=== PATIENT | male | born 1985 ===

== ENCOUNTER 2017-01-22 09:36 | Emergency (ER) | payer BC ==
[2017-01-22 09:45] VITALS: RESP 18
[2017-01-22] MEDS ORDERED: Albuterol-Ipratrop 3 mg / 0.5 (3 ml) UD ONE ×3 (09:48→10:10)
--- NOTE | 2017-01-22 10:08 | C.PDOC ---
History Of Present Illness WHEEZE, CHEST TIGHT SINCE YEST. PS HO CHILDHOOD ASHTMA BUT NOW FIRST TIME HAS HAD IT SINCE THEN. NO CP, COUGH, FEVER, LEGGETT. DENIES HO ALLERGIES, SMOKING EXAM S/P NEB NARD LUNGS OCC EXP WHEEZE NO RETRACTIONS SPEAKING FULL SENTNCES Time Seen by Provider: 01/22/17 10:08 Chief Complaint (Nursing): Shortness Of Breath History Per: Patient History/Exam Limitations: no limitations Onset/Duration Of Symptoms: Days (1) Current Symptoms Are (Timing): Still Present Associated Symptoms: denies: Dyspnea, Cough, Fever, Chest Pain Recent travel outside of the [place]: No Past Medical History Reviewed: Historical Data, Nursing Documentation, Vital Signs Vital Signs: Last Vital Signs Temp 98.3 F 01/22/17 09:44 Pulse 82 01/22/17 09:44 Resp 18 01/22/17 10:05 BP 137/85 01/22/17 09:44 Pulse Ox 96 01/22/17 10:42 - Medical History PMH: No Chronic Diseases Family History: States: Unknown Family Hx Review Of Systems Except As Marked, All Systems Reviewed And Found Negative. Constitutional: Negative for: Fever, Chills Cardiovascular: Negative for: Chest Pain, Edema Respiratory: Positive for: Wheezing. Negative for: Cough, SOB with Excertion Gastrointestinal: Negative for: Nausea, Vomiting Skin: Negative for: Rash Neurological: Negative for: Headache, Dizziness Physical Exam - Physical Exam Appears: Non-toxic, No Acute Distress, Other (S/P NEB NARD) Skin: Warm, Dry Head: Atraumatic, Normacephalic Oral Mucosa: Moist Neck: Supple Chest: Symmetrical Cardiovascular: Rhythm Regular Respiratory: No Accessory Muscle Use, No Rales, No Rhonchi, Other (LUNGS OCCASIONAL EXPIRATORY WHEEZE, NO RETRACTIONS SPEAKING FULL SENTNCES) Gastrointestinal/Abdominal: Soft, No Tenderness Back: Normal Inspection Extremity: Normal ROM, No Calf Tenderness, Capillary Refill (< 2 SEC.) Neurological/Psych: Oriented x3, Normal Speech, Normal Cognition ED Course And Treatment O2 Sat by Pulse Oximetry: 96 (RA) Pulse Ox Interpretation: Normal - Radiology CXR: Viewed By Me, Read By Radiologist CXR Interpretation: Yes: Other (IMPRESSION: Patchy opacity in the medial right lung base may reflect infiltrate.) Disposition Counseled Patient/Family Regarding: Studies Performed, Diagnosis, Need For Followup, Rx Given - Disposition Referrals: [facility] [Outside] [facility] [Outside] Disposition: HOME/ ROUTINE Disposition Time: 10:41 Condition: IMPROVED Prescriptions: Albuterol HFA [Ventolin HFA 90 mcg/actuation (8 g)] 1 puff IH Q4 #1 inhaler Azithromycin [Zithromax] 250 mg PO DAILY #6 tab Instructions: Community Acquired Pneumonia (ED) Forms: Work Excuse - Clinical Impression Clinical Impression: Bronchospasm, Pneumonia - Scribe Statement The provider has reviewed the documentation as recorded by the Scribe YRN TIDWELL All medical record entries made by the Miguelibe were at my direction and personally dictated by me. I have reviewed the chart and agree that the record accurately reflects my personal performance of the history, physical exam, medical decision making, and the department course for this patient. I have also personally directed, reviewed, and agree with the discharge instructions and disposition.
[2017-01-22] MEDS: Albuterol-Ipratrop 3 mg / 0.5 (3 ml) UD IH SCH ×3 (10:20→10:40)
--- NOTE | 2017-01-22 10:41 | RAD ---
HISTORY: asthma COMPARISON: None available. TECHNIQUE: Chest PA and lateral FINDINGS: Examination limited by habitus. LUNGS: Patchy opacity in the medial right lung base may reflect infiltrate. Please note that chest x-ray has limited sensitivity for the detection of pulmonary masses. PLEURA: No significant pleural effusion identified. No definite pneumothorax . CARDIOVASCULAR: Heart size appears within normal limits. OSSEOUS STRUCTURES: No acute osseous abnormality identified. VISUALIZED UPPER ABDOMEN: Unremarkable. OTHER FINDINGS: None. IMPRESSION: Patchy opacity in the medial right lung base may reflect infiltrate.
[2017-01-22 11:00] VITALS: BP 148/80; PULSE 93; TEMP 97.8; O2SAT 97
== END 2017-01-22 11:00 | disposition home or self-care (01) ==
LOC: C.ER 09:36
DX: J18.9 Pneumonia, unspecified organism (principal); J98.01 Acute bronchospasm

== ENCOUNTER 2017-01-28 10:15 | Inpatient (IN) | payer BC ==
[2017-01-28 10:21] VITALS: BMI 34.8
[2017-01-28] MEDS ORDERED: Albuterol-Ipratrop 3 mg / 0.5 (3 ml) UD ONE ×2 (10:24→10:48)
[2017-01-28] MEDS ORDERED: Albuterol-Ipratrop 3 mg / 0.5 (3 ml) UD INH STA ×2 (10:41→10:42)
[2017-01-28] MEDS ORDERED: Magnesium Sulfate 1 gm in D5W 1 GM/100 ML BAG IVPB ONE ×2 (10:49→11:53)
--- NOTE | 2017-01-28 10:51 | RAD ---
HISTORY: Pneumonia COMPARISON: Chest x-ray performed 01/22/17 TECHNIQUE: Chest PA and lateral FINDINGS: Examination limited by habitus. LUNGS: Minimal patchy opacity within the medial right lower lobe may reflect atelectasis versus residual infiltrate. Please note that chest x-ray has limited sensitivity for the detection of pulmonary masses. PLEURA: No significant pleural effusion identified. No definite pneumothorax . CARDIOVASCULAR: The cardiomediastinal silhouette appears within normal limits of size. OSSEOUS STRUCTURES: Degenerative changes. VISUALIZED UPPER ABDOMEN: Unremarkable. OTHER FINDINGS: None. IMPRESSION: Minimal patchy opacity within the medial right lower lobe may reflect atelectasis versus residual infiltrate.
[2017-01-28] MEDS: Magnesium Sulfate 1 gm in D5W 1 GM/100 ML BAG IVPB SCH ×2 (11:00→12:04)
--- NOTE | 2017-01-28 11:11 | C.PDOC ---
History Of Present Illness 31 y/o male presents to the ED with complains of persistent cough x1 week. Pt was seen here last week given Zpak which patient completed but symptoms persist. Cough is productive with white phlegm. Denies recent travel. Denies fever, SOB, chest pain or any other complaints. Hx of childhood asthma. Chief Complaint (Nursing): Shortness Of Breath History Per: Patient History/Exam Limitations: no limitations Onset/Duration Of Symptoms: Days, Persistent Current Symptoms Are (Timing): Still Present Severity: Mild Associated Symptoms: Productive Cough. denies: Fever, Chills, Chest Pain Reports Recently: Seen In ED Recent travel outside of the [place]: No Past Medical History Reviewed: Historical Data, Nursing Documentation, Vital Signs Vital Signs: Last Vital Signs Temp 97.3 F L 01/30/17 23:44 Pulse 78 01/31/17 06:05 Resp 20 01/30/17 23:44 BP 123/66 01/30/17 23:44 Pulse Ox 96 01/30/17 23:44 - Medical History PMH: Asthma Family History: States: Unknown Family Hx - Social History Hx Alcohol Use: No Hx Substance Use: No - Immunization History Hx Tetanus Toxoid Vaccination: No Hx Influenza Vaccination: No Hx Pneumococcal Vaccination: No Review Of Systems Except As Marked, All Systems Reviewed And Found Negative. Constitutional: Negative for: Fever, Chills Cardiovascular: Negative for: Chest Pain Respiratory: Positive for: Cough. Negative for: Shortness of Breath Gastrointestinal: Negative for: Vomiting Physical Exam - Physical Exam Appears: Non-toxic, No Acute Distress Skin: Warm, Dry, No Rash Head: Atraumatic, Normacephalic Ear(s): Bilateral: Normal Nose: Normal Oral Mucosa: Moist Throat: Normal Neck: Normal, Normal ROM, Supple Chest: Symmetrical Cardiovascular: Rhythm Regular, No Murmur Respiratory: No Rales, No Rhonchi, Wheezing (bilateral expiratory wheeze with fair entry) Gastrointestinal/Abdominal: Normal Exam, Soft, No Tenderness Extremity: Bilateral: Atraumatic Neurological/Psych: Oriented x3, Normal Speech ED Course And Treatment - Laboratory Results Result Diagrams: 01/30/17 08:06 01/30/17 08:06 O2 Sat by Pulse Oximetry: 89 (room air) Pulse Ox Interpretation: Abnormal - Other Rad CXR X-Ray: Viewed By Me, Read By Radiologist Interpretation: HISTORY: Pneumonia. COMPARISON: Chest x-ray performed . TECHNIQUE: Chest PA and lateral. FINDINGS: Examination limited by habitus. LUNGS: Minimal patchy opacity within the medial right lower lobe may reflect atelectasis versus residual infiltrate. Please note that chest x-ray has limited sensitivity for the detection of pulmonary masses. PLEURA: No significant pleural effusion identified. No definite pneumothorax . CARDIOVASCULAR: The cardiomediastinal silhouette appears within normal limits of size. OSSEOUS STRUCTURES: Degenerative changes. VISUALIZED UPPER ABDOMEN: Unremarkable. OTHER FINDINGS: None. IMPRESSION: Minimal patchy opacity within the medial right lower lobe may reflect atelectasis versus residual infiltrate. Progress Note: After treatemnts, patient continues to c/o SOB. Discussed case with Stephanie, will admit pt to his service and start abx therapy. Medical Decision Making Medical Decision Making: Plan: * labs * CXR * albuterol, nebulizer Disposition - Disposition Disposition: HOSPITALIZED Disposition Time: 13:00 Condition: STABLE - Clinical Impression Clinical Impression: Respiratory tract infection, Asthma - Scribe Statement The provider has reviewed the documentation as recorded by the Soha Shepherd Provider Attestation: All medical record entries made by the Soha were at my direction and personally dictated by me. I have reviewed the chart and agree that the record accurately reflects my personal performance of the history, physical exam, medical decision making, and the department course for this patient. I have also personally directed, reviewed, and agree with the discharge instructions and disposition.
[2017-01-28 11:12] LABS: BASO # 0.1 K/uL (0.0-0.2); BASO % 0.8 % (0.0-2.0); EOS % 6.3 % (0.0-4.0); HEMATOCRIT 49.4 % (35.0-51.0); LYMPH # 3.6 K/uL (1.0-4.3); LYMPH % 23.1 % (20.0-40.0); MEAN CELL VOLUME 86.2 fL (80.0-94.0); MEAN CORPUSCULAR HEMOGLOBIN 28.5 pg (27.0-31.0); MEAN PLATELET VOLUME 9.2 fL (7.2-11.7); MONO % 6.5 % (0.0-10.0); RED CELL DISTRIBUTION WIDTH 13.8 % (11.5-14.5); WHITE BLOOD COUNT 15.3 K/uL (4.8-10.8)
[2017-01-28 11:33] LABS: ALKALINE PHOSPHATASE 101 U/L (38-126); ALT/SGPT 60 U/L (21-72); BLOOD UREA NITROGEN 17 mg/dL (9-20); CALCIUM 9.7 mg/dl (8.6-10.4); GLUCOSE,RANDOM 111 mg/dL (75-110)
[2017-01-28 12:14] LABS: ALB/GLOB RATIO 1.1 (1.0-2.1); AST/SGOT 38 U/L (17-59); BILIRUBIN,TOTAL 1.3 mg/dL (0.2-1.3); CARBON DIOXIDE 29 mmol/L (22-30); CHLORIDE 102 mmol/L (98-107); GFR AFRICAN-AMERICAN > 60; POTASSIUM 4.5 mmol/L (3.6-5.2); SODIUM 142 mmol/L (132-148); TOTAL PROTEIN 8.5 g/dL (6.3-8.3)
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
[2017-01-28] MEDS ORDERED: MethylPREDNISolone 40 mg Vial ONE (15:54)
[2017-01-28] MEDS ORDERED: cefTRIAXone IV 1 gm in Dextros 50 ML IVPB ONE (15:54)
[2017-01-28] MEDS: Albuterol-Ipratrop 3 mg / 0.5 (3 ml) UD INH SCH (20:20)
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
[2017-01-29] MEDS: Albuterol-Ipratrop 3 mg / 0.5 (3 ml) UD INH SCH ×4 (02:18→20:15)
[2017-01-29 07:20] LABS: BASO % 0.1 % (0.0-2.0); HEMATOCRIT 45.7 % (35.0-51.0); LYMPH # 2.1 K/uL (1.0-4.3); MEAN CELL VOLUME 86.6 fL (80.0-94.0); MEAN CORPUSCULAR HEMOGLOBIN 28.6 pg (27.0-31.0); MEAN PLATELET VOLUME 9.5 fL (7.2-11.7); MONO # 0.6 K/uL (0.0-0.8); MONO % 3.4 % (0.0-10.0); NRBC % 0.1 % (0.0-2.0); RED CELL DISTRIBUTION WIDTH 13.8 % (11.5-14.5); WHITE BLOOD COUNT 17.5 K/uL (4.8-10.8)
[2017-01-29 07:25] LABS: CHLORIDE 99 mmol/L (98-107); POTASSIUM 4.4 mmol/L (3.6-5.2); SODIUM 136 mmol/L (132-148)
[2017-01-29 07:27] LABS: GFR AFRICAN-AMERICAN > 60
[2017-01-29 07:28] LABS: ALB/GLOB RATIO 1.2 (1.0-2.1); ALKALINE PHOSPHATASE 84 U/L (38-126); ALT/SGPT 50 U/L (21-72); AST/SGOT 27 U/L (17-59); BILIRUBIN,TOTAL 0.8 mg/dL (0.2-1.3); BLOOD UREA NITROGEN 14 mg/dL (9-20); CARBON DIOXIDE 24 mmol/L (22-30); GLUCOSE,RANDOM 170 mg/dL (75-110)
[2017-01-29 07:29] LABS: CALCIUM 9.1 mg/dl (8.6-10.4)
--- NOTE | 2017-01-29 08:58 | CON ---
DATE: 01/28/2017 REQUESTING PHYSICIAN: Dr. Brown. REASON FOR CONSULTATION: Pneumonia and shortness of breath. HISTORY OF PRESENT ILLNESS: The patient is a 31-year-old male who is admitted via the Emergency Room because of shortness of breath, cough and wheezing. The patient states he was not feeling well for the past 1 week and came to [facility] ER where he was prescribed p.o. Zithromax for 5 days and sent home. The patient states he took the medication but without any relief and today felt weak and more short of breath. In the ER, patient's chest x-ray was found to have right lower lobe medial inf iltrate. The patient was therefore advised admission. The patient denies any history of abdominal p ain, diarrhea or constipation. The patient denies smoking or drinking. The patient states his sputu m is greenish-yellowish in color. Denies any hemoptysis or hematemesis. The patient denies any ches t pains or even on deep inspiration. The patient was given a dose of IV Rocephin in the ER. Infecti ous disease consultation therefore requested for further intervention and antibiotics. PAST MEDICAL HISTORY: The patient has history of childhood asthma. Denies history of diabetes or hy pertension or heart disease. FAMILY HISTORY: Significant for diabetes mellitus in grandparents and parents. SOCIAL HISTORY: The patient denies smoking, denies alcohol use, denies any substance abuse. ALLERGIES: None known. REVIEW OF SYSTEMS: RESPIRATORY: Complains of cough with thick greenish yellow phlegm. Denies hemoptysis. Denies chest pains or pleuritic pains. CARDIOVASCULAR: Denies any palpitations or chest pains. GASTROINTESTINAL: Denies any diarrhea, obstipation, abdominal pain, nausea or vomiting. GENITOURINARY: Unremarkable. No history of dysuria, no hematuria. No history of kidney stones. CENTRAL NERVOUS SYSTEM: No headaches, no seizures. Rest of the review of systems is unremarkable. PHYSICAL EXAMINATION: GENERAL: The patient is awake, alert, not in any acute distress except that patient was desaturating at 4 liters of oxygen with a pulse ox of 88-89%, presently on BiPAP. VITAL SIGNS: T-max 97.9, blood pressure 120/74, respirations 26 per minute, pulse of 101 per minute, presently pulse ox is 96%. HEENT: Pupils equal, reactive to light and accommodation. Extraocular movements full. Fundus negat tahir. Sclerae nonicteric. Conjunctivae normal. JVP not elevated. NECK: Appears to be supple. LUNGS: Bilateral wheezing with rhonchi. CARDIOVASCULAR SYSTEM: Sinus tachycardia, S1, S2 regular. No murmur or gallop, no rub. GASTROINTESTINAL: Abdomen is soft and nontender. No organomegaly appreciated. No masses, no hernia s. Bowel sounds are present. EXTREMITIES: No cyanosis, clubbing or edema. CENTRAL NERVOUS SYSTEM: No gross deficits. Moves all extremities. Reflexes are equal and symmetric al. Cranial nerves II-XII seem to be intact. No cerebellar deficits. Normal gait. EXTREMITIES: Nontender. No calf tenderness elicited. Range of motion: Good SKIN: No rashes or er uptions noted. LABORATORY DATA: WBCs 15.3, H and H of 16.3 and 49.4, platelets 240. D-dimer was less than 200. Cr eatinine 0.9, BUN of 17. Liver function tests: Bilirubin 1.3, AST 38, ALT 60, alkaline phosphatase 101. Chest x-ray on 01/28/2017 and 01/22/2017 noted; both consistent with minimal patchy opacity wit hin the medial right lower lobe with possible atelectasis versus infiltrate. IMPRESSION: 1. Right-sided pneumonia, rule out community-acquired pneumonia versus atypical pneumonia versus inf luenza. 2. Exacerbation of chronic obstructive pulmonary disease. 3. Leukocytosis. PLAN: 1. Pancultures. Will get sed rate, CRP. 2. Sputum Gram stain and culture. Check atypical titers including mycoplasma IgM antibody, urinary antigen for legionella, influenza A and B antibody. 3. Sputum Gram stain and culture. Pulmonary toilet. Discontinue IV ceftriaxone for now. Will star t him on IV Primaxin 500 mg q. 6 hourly for broader and ESBL Enterobacter serratia coverage. This is the second visit, so will try to cover the ESBL gram-negative organisms. Continue p.o. Tamiflu as o rdered, 75 mg p.o. b.i.d. for 5 days. Follow up liver function tests and renal functions. Will make adjustments in antibiotics once cultures are back. The patient also will need to be placed in dropl et precautions for now as ruling out influenza. Will follow along with you. Thank you very much for allowing me to participate in the care of your patient. Erwin Faria MD cc: [id number] TT: 01/29/2017 08:58:06 Confirmation # [id number] Dictation # [id number] mn
[2017-01-29] MEDS: Enoxaparin 40 mg Syringe SC SCH (11:04)
--- NOTE | 2017-01-29 13:12 | CP.PCM.PN ---
Subjective - Date & Time of Evaluation Date of Evaluation: 01/29/17 Time of Evaluation: 13:10 - Subjective Subjective: CHIEF COMPLAINTS TODAY : LESS SOB ROS. HEENT : N. Resp : POS cough, wheezing ,pleuritic CP , NO hemoptysis Cardio : No anginal CP, PND, orthopnea, palpitation GI : No abd.pain, n/v ,diarrhea or GI bleeding . VICE PRESIDENT EDUCATION : No headache, vertigo, focal deficit. Musculoskel : No joint swelling , Derm : No rash Psych : Normal affect. Ext : No swelling ,calf pain PE. Pt. is alert awake in no distress. V.S As noted in the chart Head ,ear nose,throat and eyes : Normal. Neck : Supple with normal carotids. Lungs: CELINE WHEEZE Heart : S1 & S2 normal with S4. No murmur. Abd : Soft non tender with normal bowel sounds. Neuro : Moves all ext. with no localized deficit. Ext : No edema with intact pulses.Non tender calves Derm : No rashes or decubitus ulcer. LABS/RADIOLOGY: ASSESSMENT/PLAN : CONT IV AB/STEROIDS Objective - Vital Signs/Intake and Output Vital Signs (last 24 hours): Temp Pulse Resp BP Pulse Ox 97.4 F L 100 H 20 148/90 96 01/29/17 08:00 01/29/17 08:30 01/29/17 08:00 01/29/17 08:00 01/29/17 08:00 Intake and Output: 01/29/17 01/29/17 11:59 23:59 Intake Total 440 Balance 440 - Medications Medications: Current Medications Albuterol/Ipratropium (Duoneb 3 Mg/0.5 Mg (3 Ml) Ud) 3 ml INH RQ6 ORA Last Admin: 01/29/17 08:48 Dose: 3 ml Enoxaparin Sodium (Lovenox) 40 mg SC DAILY ORA Last Admin: 01/29/17 11:04 Dose: 40 mg Imipenem/Cilastatin Sodium 500 (mg/ Sodium Chloride) 100 mls @ 100 mls/hr IVPB Q6H ORA Last Admin: 01/29/17 11:01 Dose: 100 mls/hr Methylprednisolone (Solu-Medrol) 60 mg IV Q6H ORA Last Admin: 01/29/17 10:57 Dose: 60 mg Oseltamivir Phosphate (Tamiflu Cap) 75 mg PO BID ORA Stop: 02/02/17 18:01 Last Admin: 01/29/17 10:56 Dose: 75 mg - Labs Labs: 01/29/17 07:03 01/29/17 07:03
[2017-01-29] MEDS ORDERED: Iodixanol 320 MG/ML 100 ML BOTTLE IV ONE (15:20)
--- NOTE | 2017-01-29 16:29 | CP.PCM.PN ---
Subjective - Date & Time of Evaluation Date of Evaluation: 01/29/17 Time of Evaluation: 16:29 - Subjective Subjective: CHIEF COMPLAINTS TODAY : AFEBRILE C/O SOB PRODUCTIVE COUGH ROS. HEENT : N. Resp : +VE SOB, wheezing, +VE cough Cardio : No CP, PND orthopnea GI : No abd. Pain, n/v YARDER : No headache , focal deficit. Musculoskel : N Ext. : Pedal pulses intact, no edema or calf pain Derm : N Psych : N. PE. Pt. is alert awake in no distress. V.S As noted in the chart Head ,ear nose,throat and eyes : Normal. Neck : Supple with normal carotids. Lungs: B/L RHONCHI/AND WHEEZE Heart : S1 & S2 normal . . No murmur. S4 + Abd : Soft non tender with normal bowel sounds. Neuro : Moves all ext. with no localized deficit. Ext : No edema with intact pulses. Neg. calf tenderness Derm : No rashes or decubitus ulcer. Radiology/Labs . wbc 17.5 ? STEROIDS CREATININE 0.7/bun 14 LFT N NORMAL CHEST X-RAY ; MINIMAL PATCHY OPACITY RIGHT MIDDLE LOBE 01/28 Asssessment : RML PNEUMONIA WITH HYPOXIA- ? CAP VS INFLUENZA. Plan PANCULTURES ON iv IMIPENEM: 500 MG EVERY 8 HOURLY 01/28/17 TAMIFLU 75 MG BY MOUTH TWICE A DAY X5DAYS 01/28 fOLLOW-UP ATYPICAL TITERS. CONTINUE iv STEROIDS. Ct CHEST WITH iv CONTRAST R/O MASS /BILATERAL PNEUMONIA PULMONARY TOILET. AIRBORNE PRECAUTIONS FOR NOW. .. Objective - Vital Signs/Intake and Output Vital Signs (last 24 hours): Temp Pulse Resp BP Pulse Ox 97.4 F L 106 H 20 130/72 96 01/29/17 08:00 01/29/17 16:00 01/29/17 08:00 01/29/17 14:35 01/29/17 08:00 Intake and Output: 01/29/17 01/29/17 06:59 18:59 Intake Total 440 800 Output Total 800 Balance 440 0 - Medications Medications: Current Medications Albuterol/Ipratropium (Duoneb 3 Mg/0.5 Mg (3 Ml) Ud) 3 ml INH RQ6 ORA Last Admin: 01/29/17 14:32 Dose: 3 ml Enoxaparin Sodium (Lovenox) 40 mg SC DAILY [facility] Last Admin: 01/29/17 11:04 Dose: 40 mg Imipenem/Cilastatin Sodium 500 (mg/ Sodium Chloride) 100 mls @ 100 mls/hr IVPB Q6H [facility] Last Admin: 01/29/17 11:01 Dose: 100 mls/hr Methylprednisolone (Solu-Medrol) 60 mg IV Q6H [facility] Last Admin: 01/29/17 10:57 Dose: 60 mg Oseltamivir Phosphate (Tamiflu Cap) 75 mg PO BID [facility] Stop: 02/02/17 18:01 Last Admin: 01/29/17 10:56 Dose: 75 mg - Labs Labs: 01/29/17 07:03 01/29/17 07:03
--- NOTE | 2017-01-29 16:56 | CT ---
CT chest with IV contrast Indication: Pneumonia Technique: Contiguous axial images were obtained through the chest with intravenous contrast enhancement. Sagittal and coronal reconstructions were generated and reviewed. This CT exam was performed using 1 or more of the falling dose reduction techniques: Automated exposure control, adjustment of the MAA and/or kV according to patient size, and/or use of iterative reconstruction technique. IV Contrast: 100 mL Visipaque Radiation dose (DLP): 911.95 MGy-cm. Comparison: Chest x-ray performed 01/28/17 Findings: Visualized portions of the inferior thyroid gland appear unremarkable. The mediastinal and hilar vascular structures appear within normal limits. The heart appears within normal limits of size. Sub cm prevascular lymph nodes, nonspecific. Geographic ground glass opacities scattered throughout all lobes, greatest in the right lower and left upper lobes. Appearance favored to represent small airways/vessels disease. Infectious or inflammatory etiologies are not excluded. No focal consolidation. No pleural effusion. No pneumothorax. No suspicious pulmonary nodules measuring greater than 5 mm. Tiny hiatal hernia. Limited visualization of the upper abdomen demonstrates probable 10 mm splenule. Hypoattenuation of the liver compatible with hepatic steatosis. Otherwise unremarkable appearance of the upper abdomen. Bilateral gynecomastia. No acute osseous abnormality is detected. Impression: Geographic ground glass opacities scattered throughout all lobes, greatest in the right lower and left upper lobes. Appearance favored to represent small airways/vessels disease. Infectious or inflammatory etiologies are not excluded. Recommend clinical correlation and short-term CT follow-up upon completion of treatment for acute symptoms to assess for resolution. Additional incidental findings as above.
[2017-01-29 19:12] LABS: LEGIONELLA AG URINE NEGATIVE (NEGATIVE)
[2017-01-30] MEDS: Albuterol-Ipratrop 3 mg / 0.5 (3 ml) UD INH SCH ×4 (01:13→20:22)
[2017-01-30 08:12] LABS: BASO % 0.2 % (0.0-2.0); HEMATOCRIT 46.5 % (35.0-51.0); LYMPH % 11.5 % (20.0-40.0); MEAN CELL VOLUME 87.3 fL (80.0-94.0); MEAN CORPUSCULAR HEMOGLOBIN 28.7 pg (27.0-31.0); MEAN CORPUSCULAR HGB CONC 32.9 g/dL (33.0-37.0); MEAN PLATELET VOLUME 9.3 fL (7.2-11.7); MONO # 0.6 K/uL (0.0-0.8); MONO % 3.4 % (0.0-10.0); NRBC % 0.1 % (0.0-2.0); RED CELL DISTRIBUTION WIDTH 14.1 % (11.5-14.5); WHITE BLOOD COUNT 17.4 K/uL (4.8-10.8)
[2017-01-30 08:31] LABS: CHLORIDE 99 mmol/L (98-107); SODIUM 139 mmol/L (132-148)
[2017-01-30 08:32] LABS: POTASSIUM 4.1 mmol/L (3.6-5.2)
[2017-01-30 08:34] LABS: ALB/GLOB RATIO 1.1 (1.0-2.1); ALKALINE PHOSPHATASE 80 U/L (38-126); ALT/SGPT 119 U/L (21-72); AST/SGOT 58 U/L (17-59); BILIRUBIN,TOTAL 0.9 mg/dL (0.2-1.3); BLOOD UREA NITROGEN 15 mg/dL (9-20); CARBON DIOXIDE 27 mmol/L (22-30); GFR AFRICAN-AMERICAN > 60; GLUCOSE,RANDOM 173 mg/dL (75-110); TOTAL PROTEIN 7.7 g/dL (6.3-8.3)
[2017-01-30 08:35] LABS: CALCIUM 9.3 mg/dl (8.6-10.4)
[2017-01-30] MEDS: Enoxaparin 40 mg Syringe SC SCH (09:29)
--- NOTE | 2017-01-30 11:23 | CP.PCM.PN ---
Subjective - Date & Time of Evaluation Date of Evaluation: 01/30/17 Time of Evaluation: 11:22 - Subjective Subjective: CHIEF COMPLAINTS TODAY : LESS SOB ROS. HEENT : N. Resp : POS cough, wheezing ,pleuritic CP , NO hemoptysis Cardio : No anginal CP, PND, orthopnea, palpitation GI : No abd.pain, n/v ,diarrhea or GI bleeding . 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 Musculoskel : No joint swelling , Derm : No rash Psych : Normal affect. Ext : No swelling ,calf pain PE. Pt. is alert awake in no distress. V.S As noted in the chart Head ,ear nose,throat and eyes : Normal. Neck : Supple with normal carotids. Lungs: CELINE WHEEZE Heart : S1 & S2 normal with S4. No murmur. Abd : Soft non tender with normal bowel sounds. Neuro : Moves all ext. with no localized deficit. Ext : No edema with intact pulses.Non tender calves Derm : No rashes or decubitus ulcer. LABS/RADIOLOGY: ct chest MULTIPLE GROUND GLASS OPACITY WITH MULTIPLE ETIOLOGY ASSESSMENT/PLAN : CONT IV AB/STEROIDS AND OBSERVE RESPOND WITH ANOTHER CT CHEST WBC UP 17K Objective - Vital Signs/Intake and Output Vital Signs (last 24 hours): Temp Pulse Resp BP Pulse Ox 97.8 F 94 H 20 128/75 96 01/30/17 07:54 01/30/17 08:21 01/30/17 07:54 01/30/17 07:54 01/30/17 07:54 Intake and Output: 01/29/17 01/30/17 23:59 11:59 Intake Total 1340 0 Output Total 800 0 Balance 540 0 - Medications Medications: Current Medications Albuterol/Ipratropium (Duoneb 3 Mg/0.5 Mg (3 Ml) Ud) 3 ml INH RQ6 [facility] Last Admin: 01/30/17 08:22 Dose: 3 ml Enoxaparin Sodium (Lovenox) 40 mg SC DAILY [facility] Last Admin: 01/30/17 09:29 Dose: 40 mg Imipenem/Cilastatin Sodium 500 (mg/ Sodium Chloride) 100 mls @ 100 mls/hr IVPB Q6H [facility] Last Admin: 01/30/17 04:22 Dose: 100 mls/hr Methylprednisolone (Solu-Medrol) 60 mg IV Q6H [facility] Last Admin: 01/30/17 04:22 Dose: 60 mg Oseltamivir Phosphate (Tamiflu Cap) 75 mg PO BID [facility] Stop: 02/02/17 18:01 Last Admin: 01/30/17 09:29 Dose: 75 mg - Labs Labs: 01/30/17 08:06 01/30/17 08:06
--- NOTE | 2017-01-30 11:52 | CP.PCM.PN ---
Subjective - Date & Time of Evaluation Date of Evaluation: 01/30/17 Time of Evaluation: 11:52 - Subjective Subjective: CHIEF COMPLAINTS TODAY : afebrile , ON BIPAP LESS SOB , less cough ROS. HEENT : N. Resp : POS cough, wheezing ,pleuritic CP , NO hemoptysis Cardio : No anginal CP, PND, orthopnea, palpitation GI : No abd.pain, n/v ,diarrhea or GI bleeding . 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 Musculoskel : No joint swelling , Derm : No rash Psych : Normal affect. Ext : No swelling ,calf pain PE. Pt. is alert awake in no distress. V.S As noted in the chart Head ,ear nose,throat and eyes : Normal. Neck : Supple with normal carotids. Lungs: CELINE WHEEZE Heart : S1 & S2 normal with S4. No murmur. Abd : Soft non tender with normal bowel sounds. Neuro : Moves all ext. with no localized deficit. Ext : No edema with intact pulses.Non tender calves Derm : No rashes or decubitus ulcer. LABS/ wbc 17.4 CREAT. 0.6/BUN 15 AST-N, ALT 119 AP-N RADIOLOGY: CT CHEST MULTIPLE GROUND GLASS OPACITY SCATTERED THROUGHOUT ALL LOBES VANESSA. RLL/GONZALO ? INFECTIOUS VERSUS INFLAMMATORY. ASSESSMENT. RESPIRATORY INSUFFICIENCY -ON BIPAP BRONCHOPNEUMONIA ?CAP VS ATYPICAL R/O INFLUENZA EXASCERBATION OF ASTHMA. PLAN : CONT IV Primaxin 500 IV piggyback every 8 hourly 01/28/17 Tamiflu 75 mg by mouth twice a day x 5 days.01/28 Add IV Vancomycin 1 g every 12 hourly for staph and strep coverage. 01/30/17. VANCO TROUGH LEVEL ON 4TH DOSE AND KEEP BETWEEN 10-20. SPUTUM CULTURE -P IV STEROIDS PER PMD. PULM .TOILET Objective - Vital Signs/Intake and Output Vital Signs (last 24 hours): Temp Pulse Resp BP Pulse Ox 97.8 F 94 H 20 128/75 96 01/30/17 07:54 01/30/17 08:21 01/30/17 07:54 01/30/17 07:54 01/30/17 07:54 Intake and Output: 01/30/17 01/30/17 06:59 18:59 Intake Total 540 Output Total 0 Balance 540 - Medications Medications: Current Medications Albuterol/Ipratropium (Duoneb 3 Mg/0.5 Mg (3 Ml) Ud) 3 ml INH RQ6 [facility] Last Admin: 01/30/17 08:22 Dose: 3 ml Enoxaparin Sodium (Lovenox) 40 mg SC DAILY [facility] Last Admin: 01/30/17 09:29 Dose: 40 mg Imipenem/Cilastatin Sodium 500 (mg/ Sodium Chloride) 100 mls @ 100 mls/hr IVPB Q6H [facility] Last Admin: 01/30/17 04:22 Dose: 100 mls/hr Methylprednisolone (Solu-Medrol) 60 mg IV Q8 [facility] Oseltamivir Phosphate (Tamiflu Cap) 75 mg PO BID [facility] Stop: 02/02/17 18:01 Last Admin: 01/30/17 09:29 Dose: 75 mg - Labs Labs: 01/30/17 08:06 01/30/17 08:06
[2017-01-30] MEDS: MethylPREDNISolone 40 mg Vial IV SCH ×2 (13:13→21:11)
[2017-01-30] MEDS: Nystatin 100,000 Units/ml Oral Susp 5 ml UD PO SCH (21:11)
[2017-01-31] MEDS: Albuterol-Ipratrop 3 mg / 0.5 (3 ml) UD INH SCH ×4 (01:27→20:26)
[2017-01-31] MEDS: MethylPREDNISolone 40 mg Vial IV SCH ×3 (05:21→22:15)
[2017-01-31 07:57] LABS: BASO % 0.1 % (0.0-2.0); EOS % 0.1 % (0.0-4.0); HEMATOCRIT 45.3 % (35.0-51.0); LYMPH # 1.8 K/uL (1.0-4.3); LYMPH % 12.6 % (20.0-40.0); MEAN CELL VOLUME 87.5 fL (80.0-94.0); MEAN CORPUSCULAR HEMOGLOBIN 28.5 pg (27.0-31.0); MEAN CORPUSCULAR HGB CONC 32.5 g/dL (33.0-37.0); MEAN PLATELET VOLUME 9.2 fL (7.2-11.7); MONO # 0.6 K/uL (0.0-0.8); MONO % 4.3 % (0.0-10.0); NRBC % 0.1 % (0.0-2.0); RED CELL DISTRIBUTION WIDTH 13.6 % (11.5-14.5); WHITE BLOOD COUNT 14.2 K/uL (4.8-10.8)
[2017-01-31 08:23] LABS: CHLORIDE 100 mmol/L (98-107); POTASSIUM 4.1 mmol/L (3.6-5.2); SODIUM 138 mmol/L (132-148)
[2017-01-31 08:25] LABS: BILIRUBIN,TOTAL 0.5 mg/dL (0.2-1.3); GFR AFRICAN-AMERICAN > 60
[2017-01-31 08:26] LABS: ALKALINE PHOSPHATASE 74 U/L (38-126); ALT/SGPT 191 U/L (21-72); AST/SGOT 61 U/L (17-59); BLOOD UREA NITROGEN 15 mg/dL (9-20); CALCIUM 8.6 mg/dl (8.6-10.4); CARBON DIOXIDE 30 mmol/L (22-30); GLUCOSE,RANDOM 154 mg/dL (75-110); TOTAL PROTEIN 6.7 g/dL (6.3-8.3)
[2017-01-31] MEDS: Enoxaparin 40 mg Syringe SC SCH (09:40)
[2017-01-31] MEDS: Nystatin 100,000 Units/ml Oral Susp 5 ml UD PO SCH ×4 (09:41→22:13)
--- NOTE | 2017-01-31 13:23 | CP.PCM.PN ---
Subjective - Date & Time of Evaluation Date of Evaluation: 01/31/17 Time of Evaluation: 13:23 - Subjective Subjective: CHIEF COMPLAINTS TODAY : LESS SOB ROS. HEENT : N. Resp : POS cough, wheezing ,pleuritic CP , NO hemoptysis Cardio : No anginal CP, PND, orthopnea, palpitation GI : No abd.pain, n/v ,diarrhea or GI bleeding . 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 Musculoskel : No joint swelling , Derm : No rash Psych : Normal affect. Ext : No swelling ,calf pain PE. Pt. is alert awake in no distress. V.S As noted in the chart Head ,ear nose,throat and eyes : Normal. Neck : Supple with normal carotids. Lungs: CELINE WHEEZE Heart : S1 & S2 normal with S4. No murmur. Abd : Soft non tender with normal bowel sounds. Neuro : Moves all ext. with no localized deficit. Ext : No edema with intact pulses.Non tender calves Derm : No rashes or decubitus ulcer. LABS/RADIOLOGY: ct chest MULTIPLE GROUND GLASS OPACITY WITH MULTIPLE ETIOLOGY ASSESSMENT/PLAN : CONT IV AB/STEROIDS AND OBSERVE RESPOND WITH ANOTHER CT CHEST WBC UP 17K Objective - Vital Signs/Intake and Output Vital Signs (last 24 hours): Temp Pulse Resp BP Pulse Ox 97.5 F L 74 20 138/71 95 01/31/17 08:11 01/31/17 08:11 01/31/17 08:11 01/31/17 08:11 01/31/17 08:11 - Medications Medications: Current Medications Albuterol/Ipratropium (Duoneb 3 Mg/0.5 Mg (3 Ml) Ud) 3 ml INH RQ6 [facility] Last Admin: 01/31/17 13:21 Dose: 3 ml Enoxaparin Sodium (Lovenox) 40 mg SC DAILY [facility] Last Admin: 01/31/17 09:40 Dose: 40 mg Imipenem/Cilastatin Sodium 500 (mg/ Sodium Chloride) 100 mls @ 100 mls/hr IVPB Q6H [facility] Last Admin: 01/31/17 12:35 Dose: 100 mls/hr Vancomycin HCl 1,000 mg/ (Sodium Chloride) 250 mls @ 166.6 mls/hr IVPB Q12H [facility] Last Admin: 01/31/17 06:12 Dose: 166.6 mls/hr Methylprednisolone (Solu-Medrol) 60 mg IV Q8 [facility] Last Admin: 01/31/17 05:21 Dose: 60 mg Nystatin (Nystatin Oral Susp) 5 ml PO QID [facility] Last Admin: 01/31/17 09:41 Dose: 5 ml Oseltamivir Phosphate (Tamiflu Cap) 75 mg PO BID [facility] Stop: 02/02/17 18:01 Last Admin: 01/31/17 10:30 Dose: 75 mg - Labs Labs: 01/31/17 07:33 01/31/17 07:33
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
[2017-01-31] MEDS: Budesonide 0.5 mg/2 ml Inhal Susp UD INH SCH (20:26)
--- NOTE | 2017-01-31 22:31 | CP.PCM.PN ---
Subjective - Date & Time of Evaluation Date of Evaluation: 01/31/17 Time of Evaluation: 22:30 - Subjective Subjective: CHIEF COMPLAINTS TODAY : afebrile , nasal cannula O2- 2L LESS SOB , less cough SEEN BY PULMONARY AND APPRECIATED. ROS. HEENT : N. Resp : POS cough, wheezing ,pleuritic CP , NO hemoptysis Cardio : No anginal CP, PND, orthopnea, palpitation GI : No abd.pain, n/v ,diarrhea or GI bleeding . 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 Musculoskel : No joint swelling , Derm : No rash Psych : Normal affect. Ext : No swelling ,calf pain PE. Pt. is alert awake in no distress. V.S As noted in the chart Head ,ear nose,throat and eyes : Normal. Neck : Supple with normal carotids. Lungs: CELINE WHEEZE Heart : S1 & S2 normal with S4. No murmur. Abd : Soft non tender with normal bowel sounds. Neuro : Moves all ext. with no localized deficit. Ext : No edema with intact pulses.Non tender calves Derm : No rashes or decubitus ulcer. LABS/ wbc IMPROVING 14.2 CREAT. 0.6/BUN 15 LFTS INCREASING ALT 191 RADIOLOGY: CT CHEST MULTIPLE GROUND GLASS OPACITY SCATTERED THROUGHOUT ALL LOBES VANESSA. RLL/GONZALO ? INFECTIOUS VERSUS INFLAMMATORY. ASSESSMENT. RESPIRATORY INSUFFICIENCY - BRONCHOPNEUMONIA ?CAP VS ATYPICAL R/O INFLUENZA EXASCERBATION OF ASTHMA. PLAN : CONT IV Primaxin 500 IV piggyback every 8 hourly 01/28/17 DC Tamiflu 75 mg by mouth twice a day x 5 days.01/28 ( IN VIEW OF RISING lftS ) ON IV Vancomycin 1 g every 12 hourly for staph and strep coverage. 01/30/17. VANCO TROUGH LEVEL ON 4TH DOSE AND KEEP BETWEEN 10-20. SPUTUM CULTURE -P IV STEROIDS PER PMD. PULM .TOILET PER PULMONARY-IV ABX, SINGULAIR, BRONCHODILATORS. Objective - Vital Signs/Intake and Output Vital Signs (last 24 hours): Temp Pulse Resp BP Pulse Ox 98.2 F 90 220 H 127/71 94 L 01/31/17 16:00 01/31/17 16:00 01/31/17 16:00 01/31/17 16:00 01/31/17 16:00 Intake and Output: 01/31/17 02/01/17 18:59 06:59 Intake Total 950 Balance 950 - Medications Medications: Current Medications Albuterol/Ipratropium (Duoneb 3 Mg/0.5 Mg (3 Ml) Ud) 3 ml INH RQ6 [facility] Last Admin: 01/31/17 20:26 Dose: 3 ml Budesonide (Pulmicort Respules) 0.5 mg INH RQ12 [facility] Last Admin: 01/31/17 20:26 Dose: 0.5 mg Enoxaparin Sodium (Lovenox) 40 mg SC DAILY [facility] Last Admin: 01/31/17 09:40 Dose: 40 mg Imipenem/Cilastatin Sodium 500 (mg/ Sodium Chloride) 100 mls @ 100 mls/hr IVPB Q6H [facility] Last Admin: 01/31/17 22:18 Dose: 100 mls/hr Vancomycin HCl 1,000 mg/ (Sodium Chloride) 250 mls @ 166.6 mls/hr IVPB Q12H [facility] Last Admin: 01/31/17 19:05 Dose: 166.6 mls/hr Methylprednisolone (Solu-Medrol) 60 mg IV Q8 [facility] Last Admin: 01/31/17 22:15 Dose: 60 mg Montelukast Sodium (Singulair) 10 mg PO HS [facility] Last Admin: 01/31/17 22:13 Dose: 10 mg Nystatin (Nystatin Oral Susp) 5 ml PO QID [facility] Last Admin: 01/31/17 22:13 Dose: 5 ml - Labs Labs: 01/31/17 07:33 01/31/17 07:33
--- NOTE | 2017-01-31 23:29 | CON ---
DATE: 01/31/2017 REASON FOR CONSULTATION: Shortness of breath. HISTORY OF PRESENT ILLNESS: The patient is a 31-year-old male who was admitted on 01/28 with the [facility] complaint of shortness of breath, cough, and wheezing. The patient states that he developed short ness of breath and cough 2 weeks prior to admission and went to the Emergency Room, where he was pres cribed Zithromax, which he took it for 5 days without any relief, and went to the Emergency Room [facility] after he did not respond, and shortness of breath, cough associated with bloody sputum, got worse. Chest x-ray done in the Emergency Room consistent with infiltrate and patient was admitted. The pat ient also states that he was having wheezing and was unable to sleep at night associated with a runny nose. The patient also complaining of excessive sleepiness during the daytime. PAST MEDICAL HISTORY: The patient has a history of childhood asthma, but he said that he had not had any attack after he was 7 years old. PAST SURGICAL HISTORY: History of knee surgery and also foot surgery. SOCIAL HISTORY: The patient said that he had history of smoking, but quit many years ago, and used t o drink, but stopped drinking also many years ago. ALLERGIES: No known drug allergies. FAMILY HISTORY: Noncontributory. REVIEW OF SYSTEMS: No other significant symptoms except for shortness of breath, wheezing, and blood -tinged sputum. PHYSICAL EXAMINATION: VITAL SIGNS: The patient's blood pressure 120/70, pulse 82 per minute, respiratory rate is 16, afebr ile. HEENT: Eyes: Conjunctivae pink. Sclerae anicteric. Pupils equal and reactive to light. NECK: Supple, no JVD, no thyromegaly, no lymphadenopathy. LUNGS: Scattered rhonchi. CARDIOVASCULAR: S1, S2. No murmur, rub, or heave. ABDOMEN: Soft, nontender. EXTREMITIES: No edema. CENTRAL NERVOUS SYSTEM: Alert, oriented x 3. LABORATORY DATA: White count today 14.2, dropped from 17, with no bands. Sodium 138, potassium 4.1, bicarb is 30, BUN 15, creatinine 0.7, alkaline phosphatase 191, which jumped from 50, AST also incre ased from 27 to 61. Legionella and prior Mycoplasma negative. CAT scan of the chest consistent with ground-glass bilateral infiltrates, consistent with small airway disease. IMPRESSION: A 31-year-old male who presented with 2-week history of shortness of breath and cough as sociated with wheezing, runny nose, and blood-tinged sputum. Chest x-ray consistent with infiltrate. The presentation consistent with allergic asthma complicated by bronchitis and lower respiratory tr act infection. The patient started on IV antibiotics as per infectious disease. Continue IV steroid s, bronchodilators. Add Singulair and inhaled steroids. Will need allergy test and pulmonary function test. Also, down the road will need a sleep study. Thank you for allowing me to participate in the care of this patient. Jayden Napoles MD cc: 9 TT: 01/31/2017 23:28:22 Confirmation # [id number] Dictation # [id number] mirna
[2017-01-31 23:43] VITALS: RESP 20
[2017-02-01] MEDS: Albuterol-Ipratrop 3 mg / 0.5 (3 ml) UD INH SCH ×4 (01:20→21:37)
[2017-02-01] MEDS: MethylPREDNISolone 40 mg Vial IV SCH ×3 (06:02→21:57)
[2017-02-01 08:00] LABS: BASO % 0.1 % (0.0-2.0); HEMATOCRIT 47.3 % (35.0-51.0); LYMPH # 1.9 K/uL (1.0-4.3); LYMPH % 13.4 % (20.0-40.0); MEAN CELL VOLUME 86.8 fL (80.0-94.0); MEAN CORPUSCULAR HEMOGLOBIN 28.6 pg (27.0-31.0); MONO # 0.5 K/uL (0.0-0.8); MONO % 3.8 % (0.0-10.0); NRBC % 0.1 % (0.0-2.0); RED CELL DISTRIBUTION WIDTH 13.6 % (11.5-14.5); WHITE BLOOD COUNT 14.2 K/uL (4.8-10.8)
[2017-02-01] MEDS: Budesonide 0.5 mg/2 ml Inhal Susp UD INH SCH ×2 (09:02→21:37)
[2017-02-01 09:06] LABS: CHLORIDE 100 mmol/L (98-107); SODIUM 135 mmol/L (132-148)
[2017-02-01 09:08] LABS: ALKALINE PHOSPHATASE 76 U/L (38-126); AST/SGOT 37 U/L (17-59); BILIRUBIN,TOTAL 0.6 mg/dL (0.2-1.3); CARBON DIOXIDE 24 mmol/L (22-30); GFR AFRICAN-AMERICAN > 60; TOTAL PROTEIN 6.8 g/dL (6.3-8.3)
[2017-02-01 09:09] LABS: ALT/SGPT 202 U/L (21-72); BLOOD UREA NITROGEN 14 mg/dL (9-20); CALCIUM 8.7 mg/dl (8.6-10.4); GLUCOSE,RANDOM 167 mg/dL (75-110)
[2017-02-01] MEDS: Enoxaparin 40 mg Syringe SC SCH (10:00)
[2017-02-01] MEDS: Nystatin 100,000 Units/ml Oral Susp 5 ml UD PO SCH ×3 (10:00→21:57)
--- NOTE | 2017-02-01 13:29 | CP.PCM.PN ---
Subjective - Date & Time of Evaluation Date of Evaluation: 02/01/17 Time of Evaluation: 13:28 - Subjective Subjective: CHIEF COMPLAINTS TODAY : LESS SOB on nasal O2 ROS. HEENT : N. Resp : POS cough, wheezing ,pleuritic CP , NO hemoptysis Cardio : No anginal CP, PND, orthopnea, palpitation GI : No abd.pain, n/v ,diarrhea or GI bleeding . 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 Musculoskel : No joint swelling , Derm : No rash Psych : Normal affect. Ext : No swelling ,calf pain PE. Pt. is alert awake in no distress. V.S As noted in the chart Head ,ear nose,throat and eyes : Normal. Neck : Supple with normal carotids. Lungs: CELINE WHEEZE Heart : S1 & S2 normal with S4. No murmur. Abd : Soft non tender with normal bowel sounds. Neuro : Moves all ext. with no localized deficit. Ext : No edema with intact pulses.Non tender calves Derm : No rashes or decubitus ulcer. LABS/RADIOLOGY: ct chest MULTIPLE GROUND GLASS OPACITY WITH MULTIPLE ETIOLOGY ASSESSMENT/PLAN : IV AB WILL NEED REPEAT CT FOR RESOLUTION Objective - Vital Signs/Intake and Output Vital Signs (last 24 hours): Temp Pulse Resp BP Pulse Ox 97.7 F 80 20 110/66 93 L 02/01/17 08:00 02/01/17 08:00 02/01/17 08:00 02/01/17 08:00 02/01/17 08:00 Intake and Output: 02/01/17 02/01/17 11:59 23:59 Intake Total 540 Balance 540 - Medications Medications: Current Medications Albuterol/Ipratropium (Duoneb 3 Mg/0.5 Mg (3 Ml) Ud) 3 ml INH RQ6 [facility] Last Admin: 02/01/17 09:02 Dose: 3 ml Budesonide (Pulmicort Respules) 0.5 mg INH RQ12 [facility] Last Admin: 02/01/17 09:02 Dose: 0.5 mg Enoxaparin Sodium (Lovenox) 40 mg SC DAILY [facility] Last Admin: 02/01/17 10:00 Dose: 40 mg Imipenem/Cilastatin Sodium 500 (mg/ Sodium Chloride) 100 mls @ 100 mls/hr IVPB Q6H [facility] Last Admin: 06/16/17 11:02 Dose: 100 mls/hr Vancomycin HCl 1,000 mg/ (Sodium Chloride) 250 mls @ 166.6 mls/hr IVPB Q12H [facility] Last Admin: 02/01/17 06:03 Dose: 166.6 mls/hr Methylprednisolone (Solu-Medrol) 60 mg IV Q8 [facility] Last Admin: 02/01/17 06:02 Dose: 60 mg Montelukast Sodium (Singulair) 10 mg PO HS [facility] Last Admin: 01/31/17 22:13 Dose: 10 mg Nystatin (Nystatin Oral Susp) 5 ml PO QID [facility] Last Admin: 02/01/17 10:00 Dose: 5 ml - Labs Labs: 02/01/17 07:44 02/01/17 07:44
--- NOTE | 2017-02-01 13:34 | CP.PCM.PN ---
Subjective - Date & Time of Evaluation Date of Evaluation: 02/01/17 Time of Evaluation: 13:34 - Subjective Subjective: afebrile, Less cough. Less short of breath Sitting up on the side of the bed. Objective - Vital Signs/Intake and Output Vital Signs (last 24 hours): Temp Pulse Resp BP Pulse Ox 97.7 F 80 20 110/66 93 L 02/01/17 08:00 02/01/17 08:00 02/01/17 08:00 02/01/17 08:00 02/01/17 08:00 Intake and Output: 02/01/17 02/01/17 06:59 18:59 Intake Total 750 540 Balance 750 540 - Medications Medications: Current Medications Albuterol/Ipratropium (Duoneb 3 Mg/0.5 Mg (3 Ml) Ud) 3 ml INH RQ6 [facility] Last Admin: 02/01/17 09:02 Dose: 3 ml Budesonide (Pulmicort Respules) 0.5 mg INH RQ12 [facility] Last Admin: 02/01/17 09:02 Dose: 0.5 mg Enoxaparin Sodium (Lovenox) 40 mg SC DAILY [facility] Last Admin: 02/01/17 10:00 Dose: 40 mg Imipenem/Cilastatin Sodium 500 (mg/ Sodium Chloride) 100 mls @ 100 mls/hr IVPB Q6H [facility] Last Admin: 02/01/17 11:02 Dose: 100 mls/hr Vancomycin HCl 1,000 mg/ (Sodium Chloride) 250 mls @ 166.6 mls/hr IVPB Q12H [facility] Last Admin: 02/01/17 06:03 Dose: 166.6 mls/hr Methylprednisolone (Solu-Medrol) 60 mg IV Q8 [facility] Last Admin: 02/01/17 06:02 Dose: 60 mg Montelukast Sodium (Singulair) 10 mg PO HS [facility] Last Admin: 01/31/17 22:13 Dose: 10 mg Nystatin (Nystatin Oral Susp) 5 ml PO QID [facility] Last Admin: 02/01/17 10:00 Dose: 5 ml - Labs Labs: 02/01/17 07:44 02/01/17 07:44 - Constitutional Appears: No Acute Distress - Head Exam Head Exam: NORMAL INSPECTION - Eye Exam Eye Exam: EOMI, PERRL - ENT Exam ENT Exam: Normal Oropharynx - Neck Exam Neck Exam: Normal Inspection - Respiratory Exam Respiratory Exam: Prolonged Expiratory Phase, NORMAL BREATHING PATTERN - Cardiovascular Exam Cardiovascular Exam: REGULAR RHYTHM, +S1, +S2 - GI/Abdominal Exam GI & Abdominal Exam: Soft, Normal Bowel Sounds. absent: Organomegaly - Extremities Exam Extremities Exam: Normal Capillary Refill. absent: Pedal Edema - Neurological Exam Neurological Exam: Alert, Awake, CN II-XII Intact, Normal Gait, Oriented x3, Reflexes Normal - Psychiatric Exam Psychiatric exam: Normal Mood - Skin Skin Exam: Normal Color, Warm Assessment and Plan (1) Asthma Status: Acute (2) Bronchiolitis Status: Acute (3) Bronchospasm Status: Acute (4) Pneumonia Status: Acute - Assessment and Plan (Free Text) Assessment: ASSESSMENT. RESPIRATORY INSUFFICIENCY - BRONCHOPNEUMONIA ?CAP VS ATYPICAL EXASCERBATION OF ASTHMA. PLAN : CONT IV Primaxin 500 IV piggyback every 8 hourly 01/28/17 ON IV Vancomycin 1 g every 12 hourly for staph and strep coverage. 01/30/17. VANCO TROUGH LEVEL ON 4TH DOSE AND KEEP BETWEEN 10-20. f/u lfts/HEPATITIS SCREEN hiv 1 AND 2 ANTIBODY. IV STEROIDS PER PMD. PULM .TOILET PER PULMONARY-IV ABX, SINGULAIR, BRONCHODILATORS.
--- NOTE | 2017-02-01 17:41 | CP.PCM.PN ---
Subjective - Date & Time of Evaluation Date of Evaluation: 02/01/17 Time of Evaluation: 15:35 - Subjective Subjective: patient seen and examined. Much less short of breath Coughing much improved Afebrile Objective - Vital Signs/Intake and Output Vital Signs (last 24 hours): Temp Pulse Resp BP Pulse Ox 97.7 F 80 20 110/66 93 L 02/01/17 08:00 02/01/17 08:00 02/01/17 08:00 02/01/17 08:00 02/01/17 08:00 Intake and Output: 02/01/17 02/01/17 06:59 18:59 Intake Total 750 840 Output Total 600 Balance 750 240 - Medications Medications: Current Medications Albuterol/Ipratropium (Duoneb 3 Mg/0.5 Mg (3 Ml) Ud) 3 ml INH RQ6 [facility] Last Admin: 02/01/17 15:15 Dose: 3 ml Budesonide (Pulmicort Respules) 0.5 mg INH RQ12 [facility] Last Admin: 02/01/17 09:02 Dose: 0.5 mg Enoxaparin Sodium (Lovenox) 40 mg SC DAILY [facility] Last Admin: 02/01/17 10:00 Dose: 40 mg Imipenem/Cilastatin Sodium 500 (mg/ Sodium Chloride) 100 mls @ 100 mls/hr IVPB Q6H [facility] Last Admin: 02/01/17 11:02 Dose: 100 mls/hr Vancomycin HCl 1,000 mg/ (Sodium Chloride) 250 mls @ 166.6 mls/hr IVPB Q12H [facility] Last Admin: 02/01/17 06:03 Dose: 166.6 mls/hr Methylprednisolone (Solu-Medrol) 60 mg IV Q8 [facility] Last Admin: 02/01/17 13:34 Dose: 60 mg Montelukast Sodium (Singulair) 10 mg PO HS [facility] Last Admin: 01/31/17 22:13 Dose: 10 mg Nystatin (Nystatin Oral Susp) 5 ml PO QID [facility] Last Admin: 02/01/17 10:00 Dose: 5 ml - Labs Labs: 02/01/17 07:44 02/01/17 07:44 - Constitutional Appears: No Acute Distress - Head Exam Head Exam: ATRAUMATIC, NORMOCEPHALIC - Eye Exam Eye Exam: Normal appearance - ENT Exam ENT Exam: Mucous Membranes Moist - Neck Exam Neck Exam: Normal Inspection - Respiratory Exam Respiratory Exam: Rhonchi - Cardiovascular Exam Cardiovascular Exam: REGULAR RHYTHM - GI/Abdominal Exam GI & Abdominal Exam: Soft, Normal Bowel Sounds - Extremities Exam Extremities Exam: Full ROM - Neurological Exam Neurological Exam: Alert, Oriented x3 Assessment and Plan (1) Bronchiolitis Assessment & Plan: CAT scan of chest consistent with small airway disease/bronchiolitis Breathing and cough much improved Continue IV steroids Continue nebulizer treatment and antibiotics Followup chest x-ray Status: Acute (2) Asthma Status: Acute
[2017-02-02] MEDS: Albuterol-Ipratrop 3 mg / 0.5 (3 ml) UD INH SCH ×4 (01:12→19:50)
[2017-02-02] MEDS: MethylPREDNISolone 40 mg Vial IV SCH ×2 (06:10→13:32)
[2017-02-02] MEDS: Budesonide 0.5 mg/2 ml Inhal Susp UD INH SCH ×2 (07:39→19:50)
[2017-02-02 08:07] LABS: BASO % 0.1 % (0.0-2.0); HEMATOCRIT 48.8 % (35.0-51.0); LYMPH # 1.9 K/uL (1.0-4.3); LYMPH % 11.9 % (20.0-40.0); MEAN CELL VOLUME 86.8 fL (80.0-94.0); MEAN CORPUSCULAR HEMOGLOBIN 28.8 pg (27.0-31.0); MEAN CORPUSCULAR HGB CONC 33.2 g/dL (33.0-37.0); MEAN PLATELET VOLUME 8.9 fL (7.2-11.7); MONO # 0.9 K/uL (0.0-0.8); MONO % 5.4 % (0.0-10.0); NRBC % 0.2 % (0.0-2.0); RED CELL DISTRIBUTION WIDTH 13.8 % (11.5-14.5); WHITE BLOOD COUNT 15.8 K/uL (4.8-10.8)
[2017-02-02 08:27] LABS: CHLORIDE 102 mmol/L (98-107)
[2017-02-02 08:28] LABS: POTASSIUM 3.8 mmol/L (3.6-5.2); SODIUM 136 mmol/L (132-148)
[2017-02-02 08:30] LABS: CARBON DIOXIDE 25 mmol/L (22-30); GFR AFRICAN-AMERICAN > 60
[2017-02-02 08:31] LABS: ALB/GLOB RATIO 1.1 (1.0-2.1); ALKALINE PHOSPHATASE 111 U/L (38-126); ALT/SGPT 270 U/L (21-72); AST/SGOT 69 U/L (17-59); BILIRUBIN,DIRECT 0.4 mg/dL (0.0-0.4); BILIRUBIN,TOTAL 0.6 mg/dL (0.2-1.3); BLOOD UREA NITROGEN 15 mg/dL (9-20); CALCIUM 8.6 mg/dl (8.6-10.4); GLUCOSE,RANDOM 272 mg/dL (75-110); TOTAL PROTEIN 6.6 g/dL (6.3-8.3)
[2017-02-02] MEDS: Enoxaparin 40 mg Syringe SC SCH (10:32)
[2017-02-02] MEDS: Nystatin 100,000 Units/ml Oral Susp 5 ml UD PO SCH ×4 (10:34→21:40)
--- NOTE | 2017-02-02 14:08 | CP.PCM.PN ---
Subjective - Date & Time of Evaluation Date of Evaluation: 02/02/17 Time of Evaluation: 14:07 - Subjective Subjective: CHIEF COMPLAINTS TODAY : LESS SOB on nasal O2 LFT GOING UP INF. POS ON TAMIFLU ROS. HEENT : N. Resp : POS cough, wheezing ,pleuritic CP , NO hemoptysis Cardio : No anginal CP, PND, orthopnea, palpitation GI : No abd.pain, n/v ,diarrhea or GI bleeding . CONE PICKER : No headache, vertigo, focal deficit. Musculoskel : No joint swelling , Derm : No rash Psych : Normal affect. Ext : No swelling ,calf pain PE. Pt. is alert awake in no distress. V.S As noted in the chart Head ,ear nose,throat and eyes : Normal. Neck : Supple with normal carotids. Lungs: CELINE WHEEZE Heart : S1 & S2 normal with S4. No murmur. Abd : Soft non tender with normal bowel sounds. Neuro : Moves all ext. with no localized deficit. Ext : No edema with intact pulses.Non tender calves Derm : No rashes or decubitus ulcer. LABS/RADIOLOGY: ct chest MULTIPLE GROUND GLASS OPACITY WITH MULTIPLE ETIOLOGY ASSESSMENT/PLAN : IV AB CHECK U/S LIVER Objective - Vital Signs/Intake and Output Vital Signs (last 24 hours): Temp Pulse Resp BP Pulse Ox 97.4 F L 95 H 20 129/68 100 02/02/17 08:10 02/02/17 08:10 02/02/17 08:10 02/02/17 08:10 02/02/17 08:10 Intake and Output: 02/02/17 02/02/17 11:59 23:59 Intake Total 690 700 Output Total 800 Balance 690 -100 - Medications Medications: Current Medications Albuterol/Ipratropium (Duoneb 3 Mg/0.5 Mg (3 Ml) Ud) 3 ml INH RQ6 [facility] Last Admin: 02/02/17 13:35 Dose: 3 ml Budesonide (Pulmicort Respules) 0.5 mg INH RQ12 [facility] Last Admin: 02/02/17 07:39 Dose: 0.5 mg Enoxaparin Sodium (Lovenox) 40 mg SC DAILY [facility] Last Admin: 02/02/17 10:32 Dose: 40 mg Imipenem/Cilastatin Sodium 500 (mg/ Sodium Chloride) 100 mls @ 100 mls/hr IVPB Q6H [facility] Last Admin: 02/02/17 11:58 Dose: 100 mls/hr Methylprednisolone (Solu-Medrol) 60 mg IV Q8 [facility] Last Admin: 02/02/17 13:32 Dose: 60 mg Nystatin (Nystatin Oral Susp) 5 ml PO QID [facility] Last Admin: 02/02/17 13:31 Dose: 5 ml Oseltamivir Phosphate (Tamiflu Cap) 75 mg PO Q24H [facility] Stop: 02/07/17 13:23 Last Admin: 02/02/17 13:31 Dose: 75 mg - Labs Labs: 02/02/17 07:51 02/02/17 07:51
--- NOTE | 2017-02-02 14:21 | RAD ---
PROCEDURE: CHEST RADIOGRAPH, 1 VIEW HISTORY: f/u BRONCHITIS COMPARISON: 01/28/2017. FINDINGS: LUNGS: The lungs are well inflated and clear. PLEURA: No pneumothorax or pleural fluid seen. CARDIOVASCULAR: Normal. OSSEOUS STRUCTURES: No significant abnormalities. VISUALIZED UPPER ABDOMEN: Normal. OTHER FINDINGS: None. IMPRESSION: No active pulmonary disease.
--- NOTE | 2017-02-02 17:17 | CP.PCM.PN ---
Subjective - Date & Time of Evaluation Date of Evaluation: 02/02/17 Time of Evaluation: 14:25 - Subjective Subjective: patient seen and examined. Patient states cough and shortness of breath is much improved and no wheezing For ultrasound of the gallbladder Continue present treatment Objective - Vital Signs/Intake and Output Vital Signs (last 24 hours): Temp Pulse Resp BP Pulse Ox 98 F 95 H 20 143/78 97 02/02/17 15:00 02/02/17 15:00 02/02/17 15:00 02/02/17 15:00 02/02/17 15:00 Intake and Output: 02/02/17 02/02/17 06:59 18:59 Intake Total 2190 700 Output Total 950 800 Balance 1240 -100 - Medications Medications: Current Medications Albuterol/Ipratropium (Duoneb 3 Mg/0.5 Mg (3 Ml) Ud) 3 ml INH RQ6 [facility] Last Admin: 02/02/17 13:35 Dose: 3 ml Budesonide (Pulmicort Respules) 0.5 mg INH RQ12 [facility] Last Admin: 02/02/17 07:39 Dose: 0.5 mg Enoxaparin Sodium (Lovenox) 40 mg SC DAILY [facility] Last Admin: 02/02/17 10:32 Dose: 40 mg Imipenem/Cilastatin Sodium 500 (mg/ Sodium Chloride) 100 mls @ 100 mls/hr IVPB Q6H [facility] Last Admin: 02/02/17 11:58 Dose: 100 mls/hr Methylprednisolone (Solu-Medrol) 20 mg IV Q8 [facility] Nystatin (Nystatin Oral Susp) 5 ml PO QID [facility] Last Admin: 02/02/17 13:31 Dose: 5 ml Oseltamivir Phosphate (Tamiflu Cap) 75 mg PO Q24H [facility] Stop: 02/07/17 13:23 Last Admin: 02/02/17 13:31 Dose: 75 mg - Labs Labs: 02/02/17 07:51 02/02/17 07:51 - Head Exam Head Exam: ATRAUMATIC, NORMOCEPHALIC - Eye Exam Eye Exam: Normal appearance - ENT Exam ENT Exam: Mucous Membranes Moist - Neck Exam Neck Exam: Full ROM, Normal Inspection - Respiratory Exam Respiratory Exam: Clear to Ausculation Bilateral - Cardiovascular Exam Cardiovascular Exam: REGULAR RHYTHM - GI/Abdominal Exam GI & Abdominal Exam: Soft, Normal Bowel Sounds - Extremities Exam Extremities Exam: Normal Inspection Assessment and Plan (1) Bronchiolitis Assessment & Plan: change IV Solu Medrol to p.o. prednisone Continue nebulizer treatment, Singulair Status: Acute (2) Asthma Status: Acute
[2017-02-02] MEDS ORDERED: MethylPREDNISolone 40 mg Vial IV SCH (22:00)
[2017-02-03 08:41] VITALS: BP 126/76; PULSE 77; TEMP 97.5; O2SAT 98
[2017-02-03] MEDS: Budesonide 0.5 mg/2 ml Inhal Susp UD INH SCH (08:46)
[2017-02-03] MEDS: Nystatin 100,000 Units/ml Oral Susp 5 ml UD PO SCH (09:22)
[2017-02-03] MEDS: Enoxaparin 40 mg Syringe SC SCH (09:22)
--- NOTE | 2017-02-03 10:27 | US ---
HISTORY: R/O GB STONES /FATTY LIVER COMPARISON: None. TECHNIQUE: Grayscale imaging was performed. FINDINGS: LIVER: Measures 19.9 cm in length. There is diffuse increased echogenicity of the liver parenchyma. No mass. No intrahepatic bile duct dilatation. GALLBLADDER: Unremarkable. No gallstones. COMMON BILE DUCT: Measures 5.1 mm. No stones. No dilatation. PANCREAS: Unremarkable as visualized. No mass. No ductal dilatation. RIGHT KIDNEY: Measures 13.0 cm in length. Normal echogenicity. No calculus, mass, or hydronephrosis. AORTA: No aneurysmal dilatation. IVC: Unremarkable. OTHER FINDINGS: None . IMPRESSION: Mild hepatomegaly. Diffuse increased echogenicity in the liver may reflect hepatic steatosis however parenchymal infectious/ inflammatory etiologies cannot be entirely excluded. Clinical and laboratory correlation is advised.
--- NOTE | 2017-02-03 12:06 | CP.PCM.PN ---
Subjective - Date & Time of Evaluation Date of Evaluation: 02/03/17 Time of Evaluation: 12:05 - Subjective Subjective: afebrile, FEELING BETTER ANXIOUS TO GO HOME . AMBULATING WITHOUT SHORTNESS OF BREATH US ABDOMEN AND GALLBLADDER PERFORMED. DENIES SOB /OR COUGH. CXR; 02/02/17. NAD .CLEAR LUNGS Objective - Vital Signs/Intake and Output Vital Signs (last 24 hours): Temp Pulse Resp BP Pulse Ox 97.5 F L 77 20 126/76 98 02/03/17 08:39 02/03/17 08:39 02/03/17 08:39 02/03/17 08:39 02/03/17 08:39 Intake and Output: 02/03/17 02/03/17 06:59 18:59 Intake Total 600 1100 Balance 600 1100 - Medications Medications: Current Medications Budesonide (Pulmicort Respules) 0.5 mg INH RQ12 [facility] Last Admin: 02/03/17 08:46 Dose: Not Given Enoxaparin Sodium (Lovenox) 40 mg SC DAILY [facility] Last Admin: 02/03/17 09:22 Dose: 40 mg Imipenem/Cilastatin Sodium 500 (mg/ Sodium Chloride) 100 mls @ 100 mls/hr IVPB Q6H [facility] Last Admin: 02/03/17 11:32 Dose: 100 mls/hr Nystatin (Nystatin Oral Susp) 5 ml PO QID [facility] Last Admin: 02/03/17 09:22 Dose: 5 ml Oseltamivir Phosphate (Tamiflu Cap) 75 mg PO Q24H [facility] Stop: 02/07/17 13:23 Last Admin: 02/02/17 13:31 Dose: 75 mg Prednisone (Prednisone Tab) 20 mg PO DAILY [facility] Last Admin: 02/03/17 09:21 Dose: 20 mg - Labs Labs: 02/02/17 07:51 02/02/17 07:51 - Constitutional Appears: No Acute Distress - Head Exam Head Exam: NORMAL INSPECTION - Eye Exam Eye Exam: EOMI, PERRL. absent: Scleral icterus - ENT Exam ENT Exam: Normal Oropharynx - Neck Exam Neck Exam: Normal Inspection - Respiratory Exam Respiratory Exam: Clear to Ausculation Bilateral - Cardiovascular Exam Cardiovascular Exam: REGULAR RHYTHM, +S1, +S2 - Extremities Exam Extremities Exam: Normal Capillary Refill. absent: Calf Tenderness, Pedal Edema , Tenderness - Neurological Exam Neurological Exam: Alert, Awake, CN II-XII Intact, Normal Gait, Oriented x3, Reflexes Normal - Psychiatric Exam Psychiatric exam: Normal Mood - Skin Skin Exam: Normal Color, Warm Assessment and Plan (1) Asthma Status: Acute (2) Bronchiolitis Status: Acute (3) Bronchospasm Status: Acute (4) Pneumonia Status: Acute - Assessment and Plan (Free Text) Plan: ASSESSMENT. RESPIRATORY INSUFFICIENCY -IMPROVED BRONCHOPNEUMONIA /INFLUENZA A/B EXASCERBATION OF ASTHMA. PLAN : DC IV ANTIBIOTICS. FOLLOW-UP IN OFFICE NEXT WEEK. WILL FOLLOW ABDOMINAL ULTRASOUND/LFTS OUTPATIENT. CASE DISCUSSED WITH THE STAFF MS GARZON.
--- NOTE | 2017-02-03 15:03 | CP.PCM.PN ---
Subjective - Date & Time of Evaluation Date of Evaluation: 02/03/17 Time of Evaluation: 13:00 - Subjective Subjective: INFECTIOUS DISEASE FOLLOW-UP 02/02/17--LATE ENTRY DICTATED . DICTATION NO : # [id number]. SEE REPORTS. CASE DISCUSSED WITH STAFF. Objective - Vital Signs/Intake and Output Vital Signs (last 24 hours): Temp Pulse Resp BP Pulse Ox 97.5 F L 77 20 126/76 98 02/03/17 08:39 02/03/17 08:39 02/03/17 08:39 02/03/17 08:39 02/03/17 08:39 Intake and Output: 02/03/17 02/03/17 06:59 18:59 Intake Total 600 1100 Balance 600 1100 - Labs Labs: 02/02/17 07:51 02/02/17 07:51 Assessment and Plan (1) Asthma Status: Acute (2) Bronchiolitis Status: Acute (3) Bronchospasm Status: Acute (4) Pneumonia Status: Acute
--- NOTE | 2017-02-03 18:24 | CON ---
DATE: 02/02/2017 CHIEF COMPLAINT: The patient presently less short of breath, not using oxygen, only intermittently. The patient denies much cough, only occasional. LFTs noted to be going up. MEDICATIONS: Presently on IV Primaxin 500 mg q. 8 hourly. The patient also on vancomycin 1 g q. 12 hourly. The patient has completed 4 days of Tamiflu 75 mg p.o. b.i.d., which is held in view of risi ng LFTs. REVIEW OF SYSTEMS: RESPIRATORY: Complains of intermittent cough and wheezing, but no chest pain or hemoptysis. CARDIOVASCULAR: Denies any chest pains, palpitations, orthopnea, paroxysmal nocturnal dyspnea. GASTROINTESTINAL: Denies abdominal pain, nausea, vomiting, diarrhea or gastrointestinal bleeding. CENTRAL NERVOUS SYSTEM: No headaches, vertigo or focal deficits. MUSCULOSKELETAL: Denies any chest pains, no rash. EXTREMITIES: No swelling or calf pain. PHYSICAL EXAMINATION: GENERAL: The patient is awake, alert, in no acute distress. VITAL SIGNS: Afebrile, temperature 97.4, blood pressure 129/68, respirations 20, pulse of 95 per min larry, pulse ox 100%. HEENT: Pupils equal, reactive to light and accommodation. Extraocular movements full. Fundus negat tahir. Sclerae nonicteric. Conjunctivae normal. JVP not elevated. NECK: Appears to be supple with normal carotid. LUNGS: Few rhonchi and wheeze, but less. CARDIOVASCULAR: S1, S2 regular. No murmur or gallop. ABDOMEN: Soft, nontender, no masses. Bowel sounds are present. Obese. EXTREMITIES: No edema with intact pulses, nontender calves. DERMATOLOGIC: No rashes or decubitus ulcers. LABORATORY DATA: As reviewed. WBC is 15.8, H and H of 16.2 and 48.8, platelets 268. Creatinine 0.6 , BUN of 15. Liver function tests: Bilirubin total 0.6, direct bilirubin 0.4, AST 69, ALT , al kaline phosphatase normal. Vancomycin trough level noted less than 5. Hepatitis screen reviewed, un remarkable. Hepatitis C is negative. HIV 1 and 2 antibody screen is negative. Chest x-ray done, pe nding report. IMPRESSION: 1. Bronchopneumonia influenza A and B titers high, most likely influenza pneumonia. 2. Exacerbation of asthma. 3. Abnormal liver function tests, transaminitis, most likely cholestatic versus drug induced. PLAN: Suggest: We will discontinue IV vancomycin and discontinue Tamiflu. The patient on steroids, consider decreasing steroids as per pulmonary. Continue IV Primaxin 500 mg q. 8 hourly. We will ad d Tamiflu 75 mg p.o. once a day daily for another 5 days. We will review chest x-rays and ultrasound ordered to rule out any gallbladder disease and any obstru ctive gallbladder disease. Case discussed with a family member, good friend and the patient. The pa glenys is anxious to go home. We will review discharge after ultrasound of the abdomen. Case discuss ed with the staff. Thank you very much for allowing me to participate in the care of your patient. Erwin Faria MD cc: [id number] TT: 02/03/2017 18:23:23 Confirmation # [id number] Dictation # [id number]
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
== END 2017-02-03 14:01 | disposition home or self-care (01) | DRG 190 ==
LOC: C.ER 10:15 → C.3T 13:24
PROVIDERS: ADMIT Internal Medicine Cardiovascular Disease; ATTEND Internal Medicine Cardiovascular Disease
PROC: 5A09557 Assistance with Respiratory Ventilation, Greater than 96 Consecutive Hours, Continuous Positive Airway Pressure (ICD-10-PCS; principal; 2017-01-28)
DX: J44.0 Chronic obstructive pulmonary disease with (acute) lower respiratory infection (principal); J11.08 Influenza due to unidentified influenza virus with specified pneumonia; J18.0 Bronchopneumonia, unspecified organism; J45.901 Unspecified asthma with (acute) exacerbation; J44.1 Chronic obstructive pulmonary disease with (acute) exacerbation; Z87.891 Personal history of nicotine dependence; R09.02 Hypoxemia